=== PATIENT | female | born 1990 | race Caucasian/White ===

== ENCOUNTER 2016-06-05 15:37 | Outpatient (CLI) | payer OTHER ==
[~2016-06-05] VITALS: Ht 160 cm; Wt 109.1 kg
[~2016-06-05 15:37] MED LIST: KEFLEX500 MG PO; LITHATE20 MG PO; Motrin PO; PRENATAL TABLE1 EAC3 PO; ZOLOFT25 MG PO; risperDAL PO
[2016-06-05 16:12] VITALS: BP 105/53
[2016-06-05 18:11] VITALS: BP 109/55
[2016-06-05 18:19] LABS: AMPHETAMINES QUANT VALUE 0 NG/ML; BARBITUATES QUANT VALUE 0 NG/ML; BENZODIAZEPINES QUANT VALUE 0 NG/ML; BENZODIAZEPINES, URINE SCREEN Negative (200 ng/mL); MARIJUANA QUANT VALUE 0 NG/ML; OPIATES QUANTITATIVE VALUE 0 NG/ML; PHENCYCLIDINE QUANT VALUE 0 NG/ML
== END 2016-06-05 19:35 | disposition home or self-care (01) ==
LOC: LDRP-OP → 2WEST 15:38 → LDRP-OP 08-03 17:21
PROVIDERS: Advanced Practice Midwife
DX: O36.8130 Decreased fetal movements, third trimester, not applicable or unspecified (principal); O99.89 Other specified diseases and conditions complicating pregnancy, childbirth and the puerperium; Z3A.35 35 weeks gestation of pregnancy
CPT/HCPCS: 59025; 76818; 80306 90; G0378

== ENCOUNTER 2016-06-27 07:17 | Inpatient (IN) | payer OTHER ==
[~2016-06-27] VITALS: Ht 160 cm; Wt 115.0 kg
[2016-06-27] VITALS (12 sets, daily range): BP systolic 93–150; BP diastolic 46–71
[2016-06-27 09:54] LABS: EOSINOPHIL (%) 0.9 % (0-5); EOSINOPHIL COUNT 0.1 K/uL (0-0.3); HEMATOCRIT 34.5 % (36.0-46.0); IMMATURE GRANULOCYTE (%) 0.5 % (0.0-0.7); IMMATURE GRANULOCYTE COUNT 0.1 K/uL; LYMPHOCYTE COUNT 1.7 K/uL (1.0-2.8); MCH 29.6 PG (29.0-34.0); MCV 89.6 FL (83-99); MEAN PLAT.VOLUME 9.7 uM^3 (9.5-12.4); MONOCYTE (%) 5.9 % (3-12); MONOCYTE COUNT 0.7 K/uL (0-0.8); NEUTROPHIL (%) 77.4 % (45-76); PLATELET COUNT 277 K/uL (156-360); RBC DIS.WIDTH-CV 13.2 % (11.8-14.6); RBC DIS.WIDTH-SD 42.9 % (39-53); RED BLOOD COUNT 3.85 M/uL (3.80-5.20); WHITE BLOOD COUNT 11.6 K/uL (4.1-10.2)
[2016-06-28] VITALS (17 sets, daily range): BP systolic 108–146; BP diastolic 52–87
[2016-06-29 06:41] LABS: EOSINOPHIL (%) 1.3 % (0-5); EOSINOPHIL COUNT 0.2 K/uL (0-0.3); HEMATOCRIT 29.9 % (36.0-46.0); IMMATURE GRANULOCYTE (%) 0.6 % (0.0-0.7); IMMATURE GRANULOCYTE COUNT 0.1 K/uL; INSTRUMENT ABS NEUTROPHIL CT 7.8 K/uL; LYMPHOCYTE COUNT 3.2 K/uL (1.0-2.8); MCH 29.9 PG (29.0-34.0); MCHC 33.1 G/DL (30.0-36.0); MCV 90.3 FL (83-99); MEAN PLAT.VOLUME 9.9 uM^3 (9.5-12.4); MONOCYTE (%) 7.8 % (3-12); NEUTROPHIL COUNT 7.8 K/uL (1.8-6.4); PLATELET COUNT 258 K/uL (156-360); RBC DIS.WIDTH-CV 13.5 % (11.8-14.6); RBC DIS.WIDTH-SD 44.8 % (39-53); RED BLOOD COUNT 3.31 M/uL (3.80-5.20); WHITE BLOOD COUNT 12.1 K/uL (4.1-10.2)
[2016-06-29 07:19] VITALS: BP 115/59
[2016-06-29] MEDS ORDERED: HEMOCYTE324 MG PO (12:18)
[2016-06-29] MEDS ORDERED: IBUPROFEN800 MG PO (12:18)
[2016-06-29 14:55] VITALS: BP 133/69
== END 2016-06-29 18:25 | disposition home or self-care (01) | DRG 775 ==
LOC: 2WEST → LDRP-OP → 2WEST 07:18 → LDRP-OP 09:01 → 2WEST 06-28 07:56 → LDRP-OP 08-03 19:55
PROVIDERS: Advanced Practice Midwife
PROC: 10907ZC Drainage of Amniotic Fluid, Therapeutic from Products of Conception, Via Natural or Artificial Opening (ICD-10-PCS; 2016-06-27)
PROC: 3E0P7GC Introduction of Other Therapeutic Substance into Female Reproductive, Via Natural or Artificial Opening (ICD-10-PCS; 2016-06-27)
PROC: 10E0XZZ Delivery of Products of Conception, External Approach (ICD-10-PCS; principal; 2016-06-28)
DX: O36.8130 Decreased fetal movements, third trimester, not applicable or unspecified (principal); F33.9 Major depressive disorder, recurrent, unspecified; D62 Acute posthemorrhagic anemia; O99.344 Other mental disorders complicating childbirth; O99.02 Anemia complicating childbirth; Z37.0 Single live birth; Z3A.38 38 weeks gestation of pregnancy; F43.10 Post-traumatic stress disorder, unspecified; F41.9 Anxiety disorder, unspecified; O69.1XX1 Labor and delivery complicated by cord around neck, with compression, fetus 1; O09.43 Supervision of pregnancy with grand multiparity, third trimester; F25.9 Schizoaffective disorder, unspecified; F17.210 Nicotine dependence, cigarettes, uncomplicated; M54.9 Dorsalgia, unspecified; K02.9 Dental caries, unspecified; O99.334 Smoking (tobacco) complicating childbirth; O99.62 Diseases of the digestive system complicating childbirth; O26.899 Other specified pregnancy related conditions, unspecified trimester; Z80.1 Family history of malignant neoplasm of trachea, bronchus and lung; Z80.0 Family history of malignant neoplasm of digestive organs; Z81.8 Family history of other mental and behavioral disorders
CPT/HCPCS: 85025; G0378; J0595; J7120

== ENCOUNTER 2017-09-03 09:05 | Emergency (ER) | payer OTHER ==
[~2017-09-03] VITALS: Ht 157.5 cm; Wt 111.5 kg
[~2017-09-03 09:05] MED LIST changes: +HEMOCYTE324 MG PO; +IBUPROFEN800 MG PO
[2017-09-03] MEDS ORDERED: ZITHROMAX Z-PA250 MG PO (09:31)
[2017-09-03 09:50] VITALS: BP 157/90
== END 2017-09-03 09:51 | disposition home or self-care (01) ==
LOC: EME 09:05
DX: O99.512 Diseases of the respiratory system complicating pregnancy, second trimester (principal); J20.9 Acute bronchitis, unspecified; O99.332 Smoking (tobacco) complicating pregnancy, second trimester; F17.200 Nicotine dependence, unspecified, uncomplicated; Z88.2 Allergy status to sulfonamides; Z3A.15 15 weeks gestation of pregnancy
CPT/HCPCS: 99281; 99283